=== PATIENT | female | born 1965 | race Two or more races ===

== ENCOUNTER 2018-05-23 07:19 | Outpatient (CLI) | payer OTHER | END 2018-05-23 07:26 | disposition home or self-care (01) | LOC: SONOGRAMA 07:19 | DX: E04.1 Nontoxic single thyroid nodule (principal) ==

== ENCOUNTER 2020-01-24 11:36 | Outpatient (CLI) | payer OTHER | END 2020-01-24 11:37 | disposition home or self-care (01) | LOC: SONOGRAMA 11:36 | PROVIDERS: ATTEND Pathology Anatomic Pathology | DX: E04.2 Nontoxic multinodular goiter (principal) ==